=== PATIENT | female | born 1995 | race Caucasian/White ===

== ENCOUNTER 2017-01-15 20:59 | Emergency (ER) | payer MEDICAID ==
[~2017-01-15 20:59] MED LIST: AMOX500C PO
--- NOTE | 2017-01-15 21:51 | PD ---
HPI Chief Complaint Patient was sent over by her OB provider Date Seen: Jan 15, 2017 Time Seen: 21:38 Travel History International Travel<30 Days: No Contact w/Intl Traveler<30Days: No Known Affected Area: No History of Present Illness HPI Patient is a 21-year-old white female who is at 35 weeks gestation. Patient was seen at [facility] yesterday and was observed overnight. Patient was having some intermittent contractions, she was told that she was 4 cm, and that the baby was 6 lbs. 1 oz. Patient was observed overnight and did not continue to contract. She is given 2 doses of betamethasone and sent home on bedrest. Patient states that [facility] and was told to come to [place] immediately. Para: 1 : 2 History Past Medical History Medical History: Denies Significant Hx Obstetric History Obstetric History Spontaneous vaginal delivery at 38-39 weeks Past Surgical History Surgical History: No Previous Surgery Family History Family History: Negative Social History Alcohol Use: No Tobacco Use: No Substance Abuse: No Allergies-Medications (Allergen,Severity, Reaction): Coded Allergies: No Known Allergies (Unverified , 12/31/16) Home Meds Active Scripts Amoxicillin 500 Mg Sey112 Mg PO TID #15 CAP Ref 0 Prov:Hermilo Whitaker MD 12/19/16 Review of Systems Except as stated in HPI: all other systems reviewed are Neg Physical Exam Narrative GENERAL: Well-nourished, well-developed patient. SKIN: Warm and dry. HEAD: Normocephalic and atraumatic. EYES: No scleral icterus. No injection or drainage. ENT: No nasal drainage noted. Mucous membranes pink. Airway patent. NECK: Supple, trachea midline. No JVD. CARDIOVASCULAR: Regular rate and rhythm without murmurs, gallops, or rubs. RESPIRATORY: Breath sounds equal bilaterally. No accessory muscle use. BREASTS: Bilateral exam showed no masses , no retractions, no nipple discharge. ABDOMEN/GI: Abdomen soft, non-tender, bowel sounds present, no rebound, no guarding Gravid to [-] weeks size Fundal Height: [-35] GENITOURINARY: External Genitalia: intact and normal in appearance BUS glands: [Normal-] Cervix: [-Posterior] Dilatation: [-3 cm] Effacement: [-50] Station: [-4-] Presentation: [-Vertex] Membranes: Intact Uterine Contractions: Absent FHT's: Category: [1-] Baseline: 140 Reactive: Reactive Variability: Moderate Decels: Absent EXTREMITIES: No cyanosis or edema. BACK: Nontender without obvious deformity. No CVA tenderness. NEUROLOGICAL: Awake and alert. Motor and sensory grossly within normal limits. Five out of 5 muscle strength in all muscle groups. Normal speech. Data Data Vital Signs Reviewed: Yes MDM Plan 21-year-old female at 35 weeks. Patient is not presently ralph and cervix is unchanged from yesterday. Patient has been observed [place] hospital overnight and has received betamethasone. Patient has just left for the hospital and arrived here with no further complaints. Patient states that there is no way that she will stay at bedrest at home nor will she decrease her activities. Her family is here and has offered to help care for her 1-year-old the patient remains agitated and angry. She does not have any indication for toco lysis at this time she is to follow-up with her OB provider within the next week. Diagnosis Diagnosis: Primary Impression: 35 weeks gestation of Additional Impression: History of labor, current Disposition: 01 DISCHARGE HOME Condition: Stable Patient Instructions: General Instructions, Labor (ED), Having Your Baby: The Labor Process (GEN) Additional Instructions: RETURN FOR CONTRACTIONS, LOSS OF FLUID (WATER BREAKING), VAGINAL BLEEDING, OR DECREASED MOVEMENT. DRINK 8-10 LARGE GLASSES OF WATER EVERY DAY. KEEP SCHEDULED APPOINTMENT WITH YOUR PROVIDER. Departure Forms: Tests/Procedures Lindsay Saldaña MD Jan 15, 2017 21:51
== END 2017-01-15 22:00 | disposition home or self-care (01) ==
LOC: HOBED 20:59
DX: O09.213 Supervision of pregnancy with history of pre-term labor, third trimester (principal); Z3A.35 35 weeks gestation of pregnancy
CPT/HCPCS: 59025

== ENCOUNTER 2017-02-02 03:01 | Inpatient (IN) | payer MEDICAID ==
[2017-02-02] VITALS (33 sets, daily range): BP systolic 84–145; BP diastolic 55–83; PULSE 60–114; RESP 16–20; TEMP 97.8–98.4
[~2017-02-02] VITALS: Ht 157.5 cm; Wt 54.4 kg
[2017-02-02] MEDS: LACTATED RINGER'S 1000 ML INJ 1,000 ML IV SCH ×2 (03:43→09:23)
[2017-02-02] MEDS ORDERED: LACTATED RINGER'S 1000 ML INJ 1,000 ML IV PRN (03:43)
--- NOTE | 2017-02-02 03:43 | PD ---
HPI Chief Complaint Contractions Date Seen: Feb 02, 2017 Time Seen: 03:00 Travel History International Travel<30 Days: No Contact w/Intl Traveler<30Days: No Known Affected Area: No History of Present Illness HPI Ms. Martinez is a 21-year-old with [facility] at an estimated 37 3/7 weeks (SEFERINO 02/20/2017) who presents with contractions. Patient states that she has had intermittent contractions sporadically, but began having regular contractions at approximately 1 AM this morning. Contractions are every 57 minutes and 7/10 in severity. Patient denies vaginal bleeding or loss of vaginal fluid. Patient reports normal movement. Patient reports being evaluated at approximately 35 weeks for contractions; she was given 2 doses of betamethasone at that time. Patient denies other complications. She reports normal ultrasound prenatally. GBS+ urine culture on records Para: 1 : 2 History Past Medical History Narrative Medical contractions at ~35 weeks; received Betamethasone GBS+ urine culture on records Medical History: Denies Significant Hx Obstetric History Obstetric History Full term prior gestation Past Surgical History Surgical History: No Previous Surgery Family History Family History: Negative Social History Alcohol Use: No Tobacco Use: No Substance Abuse: No Allergies-Medications (Allergen,Severity, Reaction): Coded Allergies: No Known Allergies (Unverified , 01/23/17) Home Meds No Active Prescriptions or Reported Meds Review of Systems General / Constitutional: No: Fever, Chills Eyes: No: Blurred Vision Cardiovascular: No: Chest Pain or Discomfort Respiratory: No: Cough, Short of Breath Gastrointestinal: No: Nausea, Vomiting Genitourinary: No: Urgency Physical Exam T 97.8 BP 100/57 RR 18 HR 92 Narrative GENERAL: Well-nourished, well-developed patient. SKIN: Warm and dry. HEAD: Normocephalic and atraumatic. EYES: No scleral icterus. No injection or drainage. ENT: No nasal drainage noted. Mucous membranes pink. Airway patent. NECK: Supple, trachea midline. No JVD. CARDIOVASCULAR: Regular rate and rhythm without murmurs, gallops, or rubs. RESPIRATORY: Breath sounds equal bilaterally. No accessory muscle use. BREASTS: Bilateral exam showed no masses , no retractions, no nipple discharge. ABDOMEN/GI: Abdomen soft, non-tender, bowel sounds present, no rebound, no guarding Gravid EXTREMITIES: No cyanosis or edema. BACK: Nontender without obvious deformity. No CVA tenderness. NEUROLOGICAL: Awake and alert. Motor and sensory function grossly within normal limits. GENITOURINARY: External Genitalia: intact and normal in appearance Cervix: Dilatation: 4 Effacement: 90% Station: 0 Presentation: V Membranes: Intact Uterine Contractions: q5-7min FHT's: Category: 2 Baseline: 130 Reactive: Y Variability: mod Decels: occ variable Data Data Vital Signs Reviewed: Yes [facility] Medical Record Reviewed: Yes Interpretation(s) 21-year-old with [facility] at an estimated 37 3/7 weeks (SEFERINO 2016) - records pending -Contractions q5-7 min -Category 2 rhythm -Cervix 4/90%/0 -GBS urine culture positive Plan -Will admit for labor -Continue EFM monitoring -Will start IVF -Will start GBS PPX -Will obtain blood typing, UA, labs (unless obtained from ) Scripts No Active Prescriptions or Reported Meds Dank Wetzel MD R2 Feb 02, 2017 03:43
[2017-02-02] MEDS ORDERED: OXYTOCIN 30 UNITS-500ML PREMIX 500 ML IV ONE (03:45)
[2017-02-02] MEDS ORDERED: LIDOCAINE HCL 1% 50 ML VIAL INFIL PRN (03:45)
[2017-02-02] MEDS ORDERED: LIDOCAINE HCL 1% 50 ML VIAL I-DERMAL PRN (03:45)
[2017-02-02] MEDS ORDERED: CITRIC ACID-SODIUM CITRATE LIQ 30 ML UDC PO SCH (03:45)
[2017-02-02] MEDS ORDERED: MINERAL OIL 10 ML VIAL TOPICAL PRN (03:45)
[2017-02-02] MEDS ORDERED: SODIUM CHLORID 0.9% 500 ML INJ 500 ML IV PRN (03:45)
[2017-02-02] MEDS ORDERED: PENICILLIN G POTASSIUM INJ 5,000,000 UNITS in SODIUM CHLORIDE 0.9% INJ 100 ML IV ONE (03:45)
--- NOTE | 2017-02-02 03:45 | PD ---
HPI Chief Complaint Contraction pain Date Seen: Feb 02, 2017 Travel History International Travel<30 Days: No Contact w/Intl Traveler<30Days: No Known Affected Area: No History of Present Illness HPI Specimens 21-year-old white female at 37 weeks presents with contraction pain no bleeding or rupture the membranes, heart rate tracing is reactive, she is ralph every 5-6 minutes. [facility] Para: 1 : 2 History Obstetric History Obstetric History One vaginal delivery Social History Alcohol Use: No Tobacco Use: No Substance Abuse: No Allergies-Medications (Allergen,Severity, Reaction): Coded Allergies: No Known Allergies (Unverified , 01/23/17) Home Meds No Active Prescriptions or Reported Meds Review of Systems General / Constitutional: No: Fever, Weight Gain, Chills, Other Eyes: No: Diploplia, Blurred Vision, Visual changes, Pain, Photophobia HENT: No: Headaches, Vertigo, Lightheadedness Cardiovascular: No: Irregular Rhythm, Chest Pain or Discomfort, Palpitations, Tachycardia, Syncope, Varicosities, Edema, Cyanosis Respiratory: No: Cough, Short of Breath, Other Gastrointestinal: No: Nausea, Vomiting, Diarrhea Genitourinary: No: Decreased Urinary Output, Oliguria Musculoskeletal: No: Limited ROM, Weakness, Cramping, Edema, Pain Skin: No Rash, No Itching, No Dryness, No Lumps, No Change in Pigmentation, No Change in Nails, No Alopecia, No Lesions Neurologic: No: Weakness, Dizziness, Syncope, Focal Abnormalities, Coordination Problem, Headache, Slurred Speech, Seizures Psychiatric: No: Depression, Suicidal Ideations, Homicidal Ideation Endocrine: No: Heat Intolerance, Cold Intolerance, Polydipsia, Polyuria, Other Physical Exam Narrative GENERAL: Well-nourished, well-developed patient. SKIN: Warm and dry. HEAD: Normocephalic and atraumatic. EYES: No scleral icterus. No injection or drainage. ENT: No nasal drainage noted. Mucous membranes pink. Airway patent. NECK: Supple, trachea midline. No JVD. CARDIOVASCULAR: Regular rate and rhythm without murmurs, gallops, or rubs. RESPIRATORY: Breath sounds equal bilaterally. No accessory muscle use. BREASTS: Bilateral exam showed no masses , no retractions, no nipple discharge. ABDOMEN/GI: Abdomen soft, non-tender, bowel sounds present, no rebound, no guarding Gravid to [37-] weeks size Fundal Height: [-37] GENITOURINARY: External Genitalia: intact and normal in appearance BUS glands: [-] Cervix: [-] Dilatation: [4-] Effacement: [-90] Station: [0-] Presentation: [vtx-] Membranes: [intact ] Uterine Contractions: [reg q 5 min -] FHT's: Category: [1-] Baseline: [133-] Reactive: [yes-] Variability: [mod-] Decels: [occ variable-] EXTREMITIES: No cyanosis or edema. BACK: Nontender without obvious deformity. No CVA tenderness. NEUROLOGICAL: Awake and alert. Motor and sensory grossly within normal limits. Five out of 5 muscle strength in all muscle groups. Normal speech. MDM Interpretation(s) This patient is a 21-year-old white female at 37 weeks who presents and early labor. No bleeding or leakage of fluid noted contractions are every 5-6 minutes cervix is 4/90 and 0 station vertex presentation. Patient's GBS positive and will be treated as such. [facility] we are attempting to get records now Plan Plan to admit the patient for labor management, augmentation if necessary and anticipate vaginal delivery Diagnosis Diagnosis: Primary Impression: Uterine contractions during Scripts No Active Prescriptions or Reported Meds Lalo oRse II, MD Feb 02, 2017 03:45
--- NOTE | 2017-02-02 03:56 | HHI.HP ---
History & Physical H&P Patient Name: Aniceto Martinez Unit Number: [id number] Date of : 1995 Patient Status: Registered Emergency Room Attending Doctor: Lalo Rose II, MD HPI HPI Chief Complaint Contractions Date Seen: Feb 02, 2017 Time Seen: 03:00 Travel History International Travel<30 Days: No Contact w/Intl Traveler<30Days: No Known Affected Area: No History of Present Illness HPI Ms. Martinez is a 21-year-old with [facility] at an estimated 37 3/7 weeks (SEFERINO 02/20/2017) who presents with contractions. Patient states that she has had intermittent contractions sporadically, but began having regular contractions at approximately 1 AM this morning. Contractions are every 57 minutes and 7/10 in severity. Patient denies vaginal bleeding or loss of vaginal fluid. Patient reports normal movement. Patient reports being evaluated at approximately 35 weeks for contractions; she was given 2 doses of betamethasone at that time. Patient denies other complications. She reports normal ultrasound prenatally. GBS+ urine culture on records Para: 1 : 2 History (Limited) History Past Medical History Narrative Medical contractions at ~35 weeks; received Betamethasone GBS+ urine culture on records Medical History: Denies Significant Hx Obstetric History Obstetric History Full term prior gestation Past Surgical History Surgical History: No Previous Surgery Family History Family History: Negative Social History Alcohol Use: No Tobacco Use: No Substance Abuse: No Allergies-Medications Allergies-Medications (Allergen,Severity, Reaction): Coded Allergies: No Known Allergies (Unverified , 01/23/17) Home Meds No Active Prescriptions or Reported Meds ROS Review of Systems General / Constitutional: No: Fever, Chills Eyes: No: Blurred Vision Cardiovascular: No: Chest Pain or Discomfort Respiratory: No: Cough, Short of Breath Gastrointestinal: No: Nausea, Vomiting Genitourinary: No: Urgency Physical Exam Physical Exam T 97.8 BP 100/57 RR 18 HR 92 Narrative GENERAL: Well-nourished, well-developed patient. SKIN: Warm and dry. HEAD: Normocephalic and atraumatic. EYES: No scleral icterus. No injection or drainage. ENT: No nasal drainage noted. Mucous membranes pink. Airway patent. NECK: Supple, trachea midline. No JVD. CARDIOVASCULAR: Regular rate and rhythm without murmurs, gallops, or rubs. RESPIRATORY: Breath sounds equal bilaterally. No accessory muscle use. BREASTS: Bilateral exam showed no masses , no retractions, no nipple discharge. ABDOMEN/GI: Abdomen soft, non-tender, bowel sounds present, no rebound, no guarding Gravid EXTREMITIES: No cyanosis or edema. BACK: Nontender without obvious deformity. No CVA tenderness. NEUROLOGICAL: Awake and alert. Motor and sensory function grossly within normal limits. GENITOURINARY: External Genitalia: intact and normal in appearance Cervix: Dilatation: 4 Effacement: 90% Station: 0 Presentation: V Membranes: Intact Uterine Contractions: q5-7min FHT's: Category: 2 Baseline: 130 Reactive: Y Variability: mod Decels: occ variable Data Data Data Vital Signs Reviewed: Yes MDM MDM Medical Record Reviewed: Yes Interpretation(s) 21-year-old with [facility] at an estimated 37 3/7 weeks (SEFERINO 2016) - records pending -Contractions q5-7 min -Category 2 rhythm -Cervix 4/90%/0 -GBS urine culture positive Plan -Will admit for labor -Continue EFM monitoring -Will start IVF -Will start GBS PPX -Will obtain blood typing, UA, labs (unless obtained from ) Remarks Nursing staff attempted to obtain labs from [place] [id number]; these are unavailable at this time. Will draw labs Dank Wetzel MD R2 Feb 02, 2017 03:56
[2017-02-02] MEDS ORDERED: SODIUM CHLOR 0.9% 1000 ML INJ 1,000 ML IV PRN (04:03)
[2017-02-02 04:39] LABS: AUTOMATED NEUTROPHIL # 4.4 TH/MM3 (1.8-7.7); BASOPHIL % 0.3 % (0.0-2.0); EOSINOPHIL # 0.3 TH/MM3 (0-0.4); EOSINOPHIL % 3.8 % (0.0-4.0); HEMATOCRIT 32.5 % (35.0-46.0); HEMO FLAGS DIFF FINAL; LYMPH % 23.3 % (9.0-44.0); LYMPHOCYTE # 1.6 TH/MM3 (1.0-4.8); MEAN CELL VOLUME 79.8 FL (80.0-100.0); MEAN CORPUSCULAR HEMOGLOBIN 27.1 PG (27.0-34.0); MEAN CORPUSCULAR HGB CONC 33.9 % (32.0-36.0); MONO % 9.4 % (0.0-8.0); NEUT % 63.2 % (16.0-70.0); PLATELET COUNT 205 TH/MM3 (150-450); RED BLOOD COUNT 4.08 MIL/MM3 (4.00-5.30); RED CELL DISTRIBUTION WIDTH 13.7 % (11.6-17.2); WHITE BLOOD COUNT 6.9 TH/MM3 (4.0-11.0)
[2017-02-02 04:42] LABS: BACTERIA, URINE RARE /hpf; BLOOD, URINE NEG (NEG); COMMENT (UR) CULTURE INDICATED; CULTURE IF INDICATED CULTURE INDICATED; GLUCOSE,URINE NEG (NEG); KETONE, URINE TRACE mg/dL (NEG); NITRITE,URINE NEG (NEG); SQUAMOUS EPITHELIAL CELL URINE 4 /hpf (0-5); URINE COLOR YELLOW (YELLW/STRAW)
[2017-02-02 05:33] LABS: RUBELLA IGG ANTIBODY 67.1 IU/mL (10.0-500.0); RUBELLA STATUS IMMUNE (IMMUNE)
[2017-02-02] MEDS ORDERED: fentaNYL 2MCG-BUPIV 0.125% INJ 100 ML ONE (08:01)
[2017-02-02] MEDS: PENICILLIN G POTASSIUM INJ 2,500,000 UNITS in SODIUM CHLORIDE 0.9% INJ 100 ML IV SCH ×2 (09:19→09:24)
--- NOTE | 2017-02-02 10:10 | PD.OB.DELI ---
Delivery Date: Feb 02, 2017 Anesthesia: Epidural Episiotomy: None Vaginal Delivery: Normal Presentation: Occiput anterior Nuchal Cord: x1 Delayed cord clamping (45 sec): No (Nuchal cord could not be reduced) : Male One Minute : 9 Five Minute : 9 Weight: 2860 Infant Care: Suctioned, Spontaneous crying, Responded to stimulation Placenta: Spontaneous delivery, Intact Laceration: No lacerations Additional Information [id number] Rose no lacerations Dank Wetzel MD R2 Feb 02, 2017 10:10
[2017-02-02] MEDS ORDERED: oxyCODONE/ACETAMINOPHEN 5 MG/325 MG TAB PO PRN ×2 (10:15)
[2017-02-02] MEDS ORDERED: ONDANSETRON ODT 4 MG TAB PO PRN (10:15)
[2017-02-02] MEDS ORDERED: ALUMINUM/MAGNESIUM/SIMETH 30 ML CUP PO PRN (10:15)
[2017-02-02] MEDS ORDERED: SODIUM CHLORIDE 0.9% FLUSH 10 ML FLUSH IV FLUSH PRN (10:15)
[2017-02-02] MEDS ORDERED: DOCUSATE SODIUM 50 MG/SENNA 8.6 MG TAB PO PRN (10:15)
[2017-02-02] MEDS ORDERED: BENZOCAINE 20% TOPICAL SPRAY 60 ML CAN TOPICAL PRN (10:15)
[2017-02-02] MEDS ORDERED: ZOLPIDEM TARTRATE 5 MG TAB PO PRN (10:15)
[2017-02-02] MEDS ORDERED: WITCH HAZEL 50%/GLYCERIN 12.5% 40 PAD JAR TOPICAL PRN (10:15)
[2017-02-02] MEDS ORDERED: ACETAMINOPHEN 325 MG TAB PO PRN (10:15)
[2017-02-02] MEDS: IBUPROFEN 600 MG TAB PO PRN ×2 (11:38→21:06)
[2017-02-02] MEDS ORDERED: DIPHTH/TETANUS/ACEL PERTUSSIS (BOOSTER) 0.5 ML VIAL/PFS IM ONE (16:00)
[2017-02-02] MEDS ORDERED: MEASLES, MUMPS, RUBELLA VACCINE 0.5 ML VIAL SQ ONE (16:00)
[2017-02-02] MEDS ORDERED: SODIUM CHLORIDE 0.9% FLUSH 10 ML FLUSH IV FLUSH SCH (21:00)
--- NOTE | 2017-02-03 10:47 | HHI.OB ---
Subjective Post Day: 1 Remarks Mrs. Martinez is a 21 yo F who is PPD 1 from . Patient reports doing well at this time. Patient reports that abdominal pain/ cramping is resolved. Patient reports light vaginal bleeding. Patient ambulating well. No dysuria. Patient passing gas. Patient denies shortness of breath, chest pain, or calf swelling. Patient requests discharge today. ( Dank Wetzel MD R2) Objective Vitals/I&O Vital Signs Date Time Temp Pulse Resp B/P Pulse Ox O2 Delivery O2 Flow Rate FiO2 02/02/17 12:30 97.8 75 16 94/55 02/02/17 11:30 79 109/71 02/02/17 11:19 18 02/02/17 11:15 69 18 110/80 02/02/17 11:00 65 108/55 02/02/17 10:54 18 02/02/17 10:45 67 98/62 Objective Remarks GENERAL: Well-nourished, well-developed patient. CARDIOVASCULAR: Regular rate and rhythm without murmurs. Normal perfusion RESPIRATORY: CTAB, normal rate ABDOMEN/GI: Abdomen soft, non-tender. Fundus: Firm, non-tender at umbilicus. GENITOURINARY: Light to moderate bleeding. EXTREMITIES: No cyanosis or edema, non-tender, without signs of DVT. Medications and IVs Current Medications Medications (Trade) Dose Ordered Sig/Ricky Route Start Time Stop Time Status Last Admin (NS Flush) 2 ml BID IV FLUSH 02/02/17 21:00 02/02/17 21:06 (NS Flush) 2 ml UNSCH PRN IV FLUSH 02/02/17 10:15 (Tylenol) 650 mg Q4H PRN PO 02/02/17 10:15 (Motrin) 600 mg Q6H PRN PO 02/02/17 10:15 02/02/17 21:06 (Percocet 5-325 Mg) 1 tab Q4H PRN PO 02/02/17 10:15 (Percocet 5-325 Mg) 2 tab Q4H PRN PO 02/02/17 10:15 (Americaine 20% Top Spr) 1 spray Q4H PRN TOPICAL 02/02/17 10:15 02/02/17 12:48 (Tucks Pads) 1 applic QID PRN TOPICAL 02/02/17 10:15 02/02/17 12:48 (Sheila-Colace) 2 tab Q12H PRN PO 02/02/17 10:15 02/02/17 21:07 (Ambien) 5 mg HS PRN PO 02/02/17 10:15 (Mag-Al Plus Susp Liq) 15 ml Q8H PRN PO 02/02/17 10:15 (Zofran Odt) 4 mg Q6H PRN PO 02/02/17 10:15 (Dank Wetzel MD R2) Assessment/Plan Problem List: (1) care and examination Assessment and Plan 21 yo F who is PPD 1 from Pain control with Motrin when necessary Ambulating well -Passing gas; continue Sheila-Colace Follow-up in 6 weeks with [facility] -discuss control at follow-up Pelvic rest 6 weeks (Dank Wetzel MD R2) Attending Attestation Agree with resident A/P. D/c home. f/u in 6 weeks. (Shirley Mccann MD) Dank Wetzel MD R2 Feb 03, 2017 10:47 Shirley Mccann MD Feb 03, 2017 12:15
[2017-02-03] MEDS ORDERED: SENN1TAB PO (10:52)
[2017-02-03] MEDS ORDERED: IBUP-232 PO (10:52)
--- NOTE | 2017-02-03 10:55 | HHI.DCPOC ---
Discharge Care Plan Diagnosis: (1) care and examination Your Health Problems Are: Vaginal delivery Report Symptoms to Your Doctor -Temperate above 100.5 degrees -excessive or foul smelling drainage -Unusual pain or calf pain -Increased vaginal bleeding -Painful or difficulty urinating -Feelings of extreme sadness or anxiety after 2 weeks Goals to Promote Your Health * To prevent worsening of your condition and complications * To maintain your health at the optimal level Directions to Meet Your Goals Take your medications as prescribed Follow your dietary instruction Follow activity as directed Ensure plenty of rest for recovery Drink fluids for hydration Keep your appointments as scheduled Take your immunizations and boosters as scheduled If your symptoms worsen call your PCP, if no PCP go to Urgent Care Center or Emergency Room Smoking is Dangerous to Your Health. Avoid second hand smoke Call the 24-hour crisis hotline for domestic abuse at Shirley Mccann MD Feb 03, 2017 10:55
[2017-02-03] MEDS ORDERED: DIPHTH/TETANUS/ACEL PERTUSSIS (BOOSTER) 0.5 ML VIAL/PFS IM ONE (12:30)
[2017-02-03 15:54] LABS: RAPID PLASMA REAGIN SCREEN NON-REACTIVE (NON-REACTVE)
== END 2017-02-03 18:28 | disposition home or self-care (01) | DRG 775 ==
LOC: HOBED 03:01 → H2EA 03:52 → H1EA 12:00
PROVIDERS: ADMIT Obstetrics & Gynecology Maternal & Fetal Medicine; ATTEND Obstetrics & Gynecology Maternal & Fetal Medicine
PROC: 10E0XZZ Delivery of Products of Conception, External Approach (ICD-10-PCS; principal; 2017-02-02)
PROC: 3E0S3CZ (ICD-10-PCS; 2017-02-02)
PROC: 00HU33Z Insertion of Infusion Device into Spinal Canal, Percutaneous Approach (ICD-10-PCS; 2017-02-02)
DX: O99.824 Streptococcus B carrier state complicating childbirth (principal); O69.81X0 Labor and delivery complicated by cord around neck, without compression, not applicable or unspecified; Z3A.37 37 weeks gestation of pregnancy; Z37.0 Single live birth
CPT/HCPCS: 59025; 80074; 81001; 85025; 86592; 86762; 86850; 86900; 86901; 87086; 90715; 99285; J2540; J2590; J7120

== ENCOUNTER 2018-06-21 01:39 | Inpatient (IN) ==
[2018-06-21] MEDS ORDERED: Oxytocin 30 Units/500ml Premix 30 UNITS/500 ML BAG IV.SIG ONE (03:09)
[2018-06-21] MEDS ORDERED: Naloxone Inj 0.4 MG/ML Vial IV.PUSH PRN ×2 (03:09→12:35)
[2018-06-21] MEDS ORDERED: fentaNYL Citrate Inj 100 MCG/2 ML Ampul IV.PUSH PRN ×2 (03:09)
[2018-06-21] MEDS ORDERED: Sodium Chlor 0.9% Inj 500 ML IV.SIG PRN (03:09)
[2018-06-21] MEDS ORDERED: Sod Chloride 0.9% Inj 1,000 ML IV.CONT PRN (03:09)
[2018-06-21] MEDS ORDERED: Citric Acid/Sodium Citrate Liq 30 ML UDC PO SCH (03:15)
--- NOTE | 2018-06-21 03:16 | P.HPOB ---
History of Present Illness Primary Care Physician: UNKNOWN Chief Complaint: contractions History of Present Illness: Contractions q 10 min since 11PM no VB no LOF Decreased movement Weeks Gestation:: 39 Para: 2 : 3 PMFSH - History History Provided By: Patient - Medical History Medical History: Medical History (Last Updated 06/21/18 @ 03:12 by Yesi Mueller MD) Patient denies medical problems - Surgical History Surgical History: Surgical History (Last Updated 06/21/18 @ 03:12 by Yesi Mueller MD) No history of previous surgery - Tobacco History Second Hand Smoke Exposure: No Tobacco Use In Past 30 Days: No Smoking Status: Never smoker - Alcohol History How Often Do You Have a Drink Containing Alcohol: Never - Substance Use History Substance History: No History of Abuse - Immunization History Tetanus Immunization: Unable to Assess Hx Influenza Vaccine This Season: No Medications and Allergies Active Medications: Active Medications Fentanyl Citrate (Fentanyl Inj) 50 mcg IV.PUSH Q1H PRN PRN Reason: Pain Scale 3 - 5 Allergies Allergy/AdvReac Type Severity Reaction Status Date / Time No Known Allergies Allergy Uncoded 02/02/17 07:27 Exam Vital signs: Vital Signs 06/21/18 01:54 06/21/18 01:55 06/21/18 02:25 Temperature 98.0 F Pulse Rate 106 H Respiratory Rate 16 16 Blood Pressure 102/66 06/21/18 03:09 Temperature Pulse Rate Respiratory Rate 16 Blood Pressure Narrative: GENERAL: Well-nourished, well-developed patient. SKIN: Warm and dry. HEAD: Normocephalic and atraumatic. EYES: No scleral icterus. No injection or drainage. ENT: No nasal drainage noted. Mucous membranes pink. Airway patent. NECK: Supple, trachea midline. No JVD. CARDIOVASCULAR: Regular rate and rhythm without murmurs, gallops, or rubs. RESPIRATORY: Breath sounds equal bilaterally. No accessory muscle use. BREASTS: Bilateral exam showed no masses , no retractions, no nipple discharge. ABDOMEN/GI: Abdomen soft, non-tender, bowel sounds present, no rebound, no guarding Gravid to - weeks size Fundal Height: - GENITOURINARY: External Genitalia: intact and normal in appearance BUS glands: - Cervix: - Dilatation: 4 Effacement: 70 Station: -2 Presentation: VTX Membranes: intact Uterine Contractions: + FHT's: Category: 1 Baseline: 120 Reactive: Y Variability: Mod Decels: Neg EXTREMITIES: No cyanosis or edema. BACK: Nontender without obvious deformity. No CVA tenderness. NEUROLOGICAL: Awake and alert. Motor and sensory grossly within normal limits. Five out of 5 muscle strength in all muscle groups. Normal speech. Caprini VTE Risk Assessment Caprini VTE Risk Assessment: No/Low Risk (score <= 1) Caprini Risk Assessment Model: Point Value = 1 Point Value = 2 Point Value = 3 Point Value = 5 Age 41-60 Minor surgery BMI > 25 kg/m2 Swollen legs Varicose veins or History of unexplained or recurrent spontaneous Oral contraceptives or hormone replacement Sepsis (< 1 month) Serious lung disease, including pneumonia (< 1 month) Abnormal pulmonary function Acute myocardial infarction Congestive heart failure (< 1 month) History of inflammatory bowel disease Medical patient at bed rest Age 61-74 Arthroscopic surgery Major open surgery (> 45 min) Laparoscopic surgery (> 45 min) Malignancy Confined to bed (> 72 hours) Immobilizing plaster cast Central venous access Age >= 75 History of VTE Family history of VTE Factor V Leiden Prothrombin [id number] Lupus anticoagulant Anticardiolipin antibodies Elevated serum homocysteine Heparin-induced thrombocytopenia Other congenital or acquired thrombophilia Stroke (< 1 month) Elective arthroplasty Hip, pelvis, or leg fracture Acute spinal cord injury (< 1 month) Prophylaxis Regimen: Total Risk Factor Score Risk Level Prophylaxis Regimen 0-1 Low Early ambulation 2 Moderate Order ONE of the following: *Sequential Compression Device (SCD) *Heparin 5000 units SQ BID 3-4 Higher Order ONE of the following medications: *Heparin 5000 units SQ TID *Enoxaparin/Lovenox 40 mg SQ daily (WT < 150 kg, CrCl > 30 mL/min) *Enoxaparin/Lovenox 30 mg SQ daily (WT < 150 kg, CrCl > 10-29 mL/min) *Enoxaparin/Lovenox 30 mg SQ BID (WT < 150 kg, CrCl > 30 mL/min) AND/OR *Sequential Compression Device (SCD) 5 or more Highest Order ONE of the following medications: *Heparin 5000 units SQ TID (Preferred with Epidurals) *Enoxaparin/Lovenox 40 mg SQ daily (WT < 150 kg, CrCl > 30 mL/min) *Enoxaparin/Lovenox 30 mg SQ daily (WT < 150 kg, CrCl > 10-29 mL/min) *Enoxaparin/Lovenox 30 mg SQ BID (WT < 150 kg, CrCl > 30 mL/min) AND *Sequential Compression Device (SCD) Assessment and Plan - Plan 3/2 with IUP@ 39 4/7 weeks Decreased movement - Oligohydramnios noted on ultrasound. Given quinn patient's favorable cervix plan to admit for delivery
[2018-06-21 03:48] LABS: Baso % (Auto) 0.5 % (0.0-2.0); Eos # (Auto) 0.1 th/mm3 (0.0-0.4); Eos % (Auto) 1.8 % (0.0-4.0); Hematocrit 35.3 % (35.0-46.0); Lymph # (Auto) 2.2 th/mm3 (1.0-4.8); Lymph % (Auto) 27.1 % (9.0-44.0); Mean Corpuscular HGB Conc 34.1 % (32.0-36.0); Mean Corpuscular Hemoglobin 29.1 pg (27.0-34.0); Mean Corpuscular Volume 85.3 fL (80.0-100.0); Mean Platelet Volume 8.3 fL (7.0-11.0); Mono # (Auto) 0.8 th/mm3 (0.0-0.9); Mono % (Auto) 9.8 % (0.0-8.0); Neut # (Auto) 4.9 th/mm3 (1.8-7.7); Neut % (Auto) 60.8 % (16.0-70.0); Platelet Count 185 th/mm3 (150-450); Red Blood Count 4.14 mil/mm3 (4.00-5.30); Red Cell Distribution Width 13.5 % (11.6-17.2); White Blood Count 8.1 th/mm3 (4.0-11.0)
[2018-06-21 05:30] LABS: Bacteria,Urine Moderate /hpf; Bilirubin,Urine Negative (Negative); Clarity,Urine Cloudy (Clear); Color,Urine Amber (Yellw/Straw); Glucose,Urine (UA) Negative (Negative); Leukocyte Esterase,Urine Small (Negative); Mucus,Urine Moderate /lpf (Occasional); Nitrite,Urine Negative (Negative); Specific Gravity,Urine 1.018 (1.002-1.035); Squamous Epithelial Cell,Urine 2 /hpf (0-5)
[2018-06-21 05:32] LABS: Amphetamine Urine With Conf Neg (Neg); Benzodiazepine Urine With Conf Neg (Neg)
--- NOTE | 2018-06-21 07:31 | P.OBANTE ---
Subjective Objective Vital Signs and I&O: Vital Signs 06/21/18 01:54 06/21/18 01:55 06/21/18 02:25 Temperature 98.0 F Pulse Rate 106 H Respiratory Rate 16 16 Blood Pressure 102/66 06/21/18 03:09 06/21/18 04:18 06/21/18 06:40 Temperature 98.7 F 98.6 F Pulse Rate 70 68 Respiratory Rate 16 18 18 Blood Pressure 106/63 95/45 L Intake & Output 06/20/18 06/21/18 06/21/18 18:59 06:59 18:59 Weight 118 kg Lab and Micro Results: Laboratory Results - last 24 hr 06/21/18 06/21/18 06/21/18 02:06 02:06 03:35 WBC 8.1 RBC 4.14 Hgb 12.0 Hct 35.3 MCV 85.3 MCH 29.1 MCHC 34.1 RDW 13.5 Plt Count 185 MPV 8.3 Neut % (Auto) 60.8 Lymph % (Auto) 27.1 [place] % (Auto) 9.8 H Eos % (Auto) 1.8 Baso % (Auto) 0.5 Neut # (Auto) 4.9 Lymph # (Auto) 2.2 [place] # (Auto) 0.8 Eos # (Auto) 0.1 Baso # (Auto) 0.0 WBC Differential . Differential Comment Auto diff final Urine Color Iva Urine Clarity Cloudy H Urine pH 6.0 Ur Specific [place] 1.018 Urine Protein 30 H Urine Glucose (UA) Negative Urine Ketones 20 Urine Occult Blood Negative Urine Nitrate Negative Urine Bilirubin Negative Urine Urobilinogen Less than 2 Ur Leukocyte Esterase Small H Urine RBC 2 Urine WBC 35 H Ur Squamous Epith Cells 2 Urine Bacteria Moderate H Urine Mucus Moderate H Micro UA Comment Culture indicated Urine Culture Comments Culture indicated Urine Opiates Screen Neg Ur Barbiturates Screen Neg Ur Amphetamine Screen Neg U Benzodiazepines Scrn Neg Urine Cocaine Screen Neg U Cannabinoids Screen Pos H Blood Type Blood Type Recheck 06/21/18 03:35 WBC RBC Hgb Hct MCV MCH MCHC RDW Plt Count MPV Neut % (Auto) Lymph % (Auto) [place] % (Auto) Eos % (Auto) Baso % (Auto) Neut # (Auto) Lymph # (Auto) [place] # (Auto) Eos # (Auto) Baso # (Auto) WBC Differential Differential Comment Urine Color Urine Clarity Urine pH Ur Specific [place] Urine Protein Urine Glucose (UA) Urine Ketones Urine Occult Blood Urine Nitrate Urine Bilirubin Urine Urobilinogen Ur Leukocyte Esterase Urine RBC Urine WBC Ur Squamous Epith Cells Urine Bacteria Urine Mucus Micro UA Comment Urine Culture Comments Urine Opiates Screen Ur Barbiturates Screen Ur Amphetamine Screen U Benzodiazepines Scrn Urine Cocaine Screen U Cannabinoids Screen Blood Type O Positive Blood Type Recheck Required Physical Exam: GENERAL: Well-nourished, well-developed patient. CARDIOVASCULAR: Regular rate and rhythm without murmurs, gallops, or rubs. RESPIRATORY: Breath sounds equal bilaterally. No accessory muscle use. ABDOMEN/GI: Abdomen soft, non-tender. Fundus: [-] GENITOURINARY: External Genitalia: intact and normal in appearance Cervix: [posterior] Dilatation: [4] Effacement: [60] Station: [-2] Presentation: [vx] Membranes: [AROM, clear fluid scarce Uterine Contractions: [q5-6] FHT's: Category: [1] Baseline: [135] Reactive: [r] Variability: [moderate] Decels: [none] EXTREMITIES: No cyanosis or edema, non-tender, without signs of DVT. Assessment and Plan - Diagnosis (1) Labor abnormality, antepartum Code(s): O62.9 - Abnormality of forces of labor, unspecified Status: Acute - Plan 3/2 with IUP@ 39 4/7 weeks Decreased movement - Oligohydramnios noted on ultrasound. Given [facility] patient's favorable cervix plan to admit for delivery
[2018-06-21] MEDS ORDERED: fentaNYL 2MCG-Bupiv 0.125% Epi 150 ML EPIDURAL ONE (08:26)
[2018-06-21] MEDS ORDERED: fentaNYL Citrate Inj 100 MCG/2 ML Ampul EPIDURAL ONE (10:44)
[2018-06-21] MEDS ORDERED: fentaNYL 2MCG-Bupiv 0.125% Epi 150 ML EPIDURAL SCH (10:45)
[2018-06-21] MEDS ORDERED: Oxytocin 30 Units/500ml Premix 30 UNITS/500 ML BAG ONE (11:52)
[2018-06-21] MEDS ORDERED: Witch Hazel 50%/Glyderin 12.5% 40 Pad Jar RECTAL PRN (12:35)
[2018-06-21] MEDS ORDERED: Benzocaine 20% Top Spray 60 ML Can TOPICAL PRN (12:35)
[2018-06-21] MEDS ORDERED: Bisacodyl 10 MG Supp RECTAL PRN (12:35)
[2018-06-21] MEDS ORDERED: Acetaminophen 325 MG Tablet PO PRN (12:35)
--- NOTE | 2018-06-21 12:39 | P.OBDELI ---
Weeks Gestation: 39 Patient Started Active Labor: Yes Medical Induction of Labor: No Artificial Rupture of Membrane: Yes Artificial ROM Date: 06/21/18 Anesthesia: Epidural Episiotomy: none Vaginal Delivery: Normal Presentation: Occiput anterior Nuchal Cord: x2 Delayed Cord Clamping (45 sec): Yes Placenta: Spontaneous delivery Laceration: None Estimated blood loss (mL): 200 : Male
[2018-06-21] MEDS ORDERED: Oxytocin 30 Units/500ml Premix 30 UNITS/500 ML BAG IV.CONT SCH (12:45)
[2018-06-21] MEDS ORDERED: Methylergonovine Inj 0.2 MG/ML Ampul IM ONE (15:30)
[2018-06-21] MEDS ORDERED: Measles/Mumps/Rubella Vaccine Inj 0.5 ML Vial SQ ONE (16:00)
[2018-06-21] MEDS ORDERED: Diphtheria/Tetanus/Pertussis Vaccine Inj 0.5 ML Syringe IM ONE (16:00)
[2018-06-21] MEDS ORDERED: Zolpidem Tartrate 5 MG Tablet PO PRN (21:00)
[2018-06-22] MEDS: Senna/Docusate Sodium 8.6/50 MG Tablet PO SCH ×2 (07:08→09:30)
[2018-06-22] MEDS: Ibuprofen 400 MG Tablet PO PRN ×2 (08:46→18:34)
--- NOTE | 2018-06-22 08:57 | P.PNOB ---
Subjective Interval history: day #1 AFVSS overnight. Decreased lochia. Denies dysuria. No breast tenderness. Appetite good. No nausea or vomiting. Ambulating well. Denies calf pain or shortness of breath. Otherwise, she is doing well this morning and has no other complaints. Objective Vital Signs/I&O: Vital Signs 06/21/18 09:20 06/21/18 09:35 06/21/18 10:25 Temperature Pulse Rate 71 70 66 Respiratory Rate 16 Blood Pressure 98/56 L 85/60 L 99/61 L 06/21/18 10:28 06/21/18 10:30 06/21/18 11:00 Temperature 98.7 F Pulse Rate 96 H 68 68 Respiratory Rate 16 Blood Pressure 111/66 98/46 L 97/59 L 06/21/18 11:30 06/21/18 12:01 06/21/18 12:31 Temperature Pulse Rate 64 58 L 79 Respiratory Rate Blood Pressure 108/71 133/66 124/68 06/21/18 12:41 06/21/18 12:58 06/21/18 12:59 Temperature Pulse Rate 64 Respiratory Rate 16 16 Blood Pressure 107/64 06/21/18 13:15 06/21/18 13:30 06/21/18 13:41 Temperature Pulse Rate 62 58 L Respiratory Rate 16 16 Blood Pressure 107/58 L 107/62 06/21/18 13:45 06/21/18 14:00 06/21/18 14:28 Temperature 97.8 F Pulse Rate 64 Respiratory Rate 6 L Blood Pressure 91/72 L 06/21/18 15:00 06/21/18 20:36 Temperature 98.4 F 98.2 F Pulse Rate 68 17 L Respiratory Rate 18 6 L Blood Pressure 100/56 L 102/65 Intake & Output 06/21/18 06/22/18 06/22/18 18:59 06:59 18:59 Intake Total 1999 Balance 1999 Intake: IV 1999 LR 1000 mL Inj 1,000 ML @ 125 1999 mls/hr IV.CONT .Q8H [facility] Rx#: [id number] Result Diagrams: 06/21/18 03:35 Objective Remarks: GENERAL: Well-nourished, well-developed patient. CARDIOVASCULAR: Regular rate and rhythm without murmurs, gallops, or rubs. RESPIRATORY: Breath sounds equal bilaterally. No accessory muscle use. ABDOMEN/GI: Abdomen soft, non-tender. Fundus: Firm, non-tender at umbilicus. GENITOURINARY: Light to moderate bleeding. EXTREMITIES: No cyanosis or edema, non-tender, without signs of DVT. Medications and IVs: Active Medications Acetaminophen (Tylenol) 650 mg PO Q4H PRN PRN Reason: PAIN SCALE 1 TO 2 Al Hydroxide/Mg Hydroxide (Milk Of Magnesia Liq) 30 ml PO Q12H PRN PRN Reason: Mild Constipation Benzocaine (Americaine 20% Top [place]) 1 spray TOPICAL Q4H PRN PRN Reason: For Perineum Discomfort Bisacodyl (Dulcolax Supp) 10 mg RECTAL DAILY PRN PRN Reason: SEVERE CONSITIPATION Citric Acid/Sodium Citrate (Sodium Citrate/Citric Acid Liq) 30 ml PO [employer] [facility] Stop: 06/25/18 03:14 Ephedrine Sulfate (Ephedrine/Ns Syringe) 10 mg IV.PUSH UNSCH PRN PRN Reason: SEE LABEL COMMENTS Stop: 06/22/18 10:44 Fentanyl Citrate (Fentanyl Inj) 50 mcg IV.PUSH Q1H PRN PRN Reason: Pain Scale 3 - 5 Fentanyl Citrate (Fentanyl Inj) 100 mcg IV.PUSH Q1H PRN PRN Reason: PAIN SCALE 6 TO 10 Last Admin: 06/21/18 08:28 Dose: 100 mcg Lactated Ringer's (Lr 1000 Ml Inj) 1,000 mls @ 3,000 mls/hr IV.SIG UNSCH PRN PRN Reason: compromise or epidural Lactated Ringer's (Lr 1000 Ml Inj) 1,000 mls @ 125 mls/hr IV.CONT .Q8H [facility] Last Admin: 06/22/18 07:08 Dose: Not Given Sodium Chloride (Ns Inj) 500 mls @ 1,000 mls/hr IV.SIG UNSCH PRN PRN Reason: SEE LABEL COMMENTS Sodium Chloride (Ns Inj) 1,000 mls @ 100 mls/hr IV.CONT .Q10H PRN PRN Reason: SEE LABEL COMMENTS Fentanyl/Bupivacaine/Sodium Chlor (Fentanyl 2 Mcg-Bupiv 0.125% Epi) 150 mls @ 12 mls/hr EPIDURAL UNSCH [facility] Stop: 06/22/18 10:44 Ibuprofen (Motrin) 800 mg PO Q8H PRN PRN Reason: For cramping Last Admin: 06/22/18 08:46 Dose: 800 mg Lactulose (Lactulose Liq) 30 ml PO DAILY PRN PRN Reason: SEVERE CONSITIPATION Lidocaine HCl (Xylocaine 1% Inj) 0.1 ml I-DERMAL PRN PRN PRN Reason: For IV start Stop: 06/24/18 03:08 Lidocaine HCl (Xylocaine 1% Inj) 10 ml INFILTRATN PRN PRN PRN Reason: For episiotomy repair Stop: 06/23/18 03:08 Mineral Oil (Muri-Lube Oil) 10 ml TOPICAL PRN PRN PRN Reason: PRN perineal massage Miscellaneous Information (Misc Information) 1 each OTHER UNSCH PRN PRN Reason: SEE LABEL COMMENTS Stop: 06/22/18 10:44 Miscellaneous Information (Misc Information) 1 each OTHER UNSCH PRN PRN Reason: SEE LABEL COMMENTS Stop: 06/22/18 10:44 Naloxone HCl (Narcan Inj) 0.1 mg IV.PUSH Q2M PRN PRN Reason: for opiate reversal Naloxone HCl (Narcan Inj) 0.1 mg IV.PUSH Q2M PRN PRN Reason: for opiate reversal Ondansetron HCl (Zofran Odt) 4 mg PO Q6H PRN PRN Reason: NAUSEA OR VOMITING Senna/Docusate Sodium (Sheila-Colace) 1 tab PO BID [facility] Last Admin: 06/22/18 07:08 Dose: Not Given Sennosides (Senokot) 17.2 mg PO Q12H PRN PRN Reason: Moderate Constipation Sodium Chloride (Ns Flush) 2 ml IV.FLUSH PRN PRN PRN Reason: FLUSH AFTER USING IV ACCESS Sodium Chloride (Ns Flush) 2 ml IV.FLUSH BID [facility] Last Admin: 06/22/18 07:08 Dose: Not Given Witch Gabriela/Glycerin (Tucks Pads) 1 applicatio RECTAL QID PRN PRN Reason: HEMORRHOIDS Zolpidem Tartrate (Ambien) 5 mg PO HS PRN PRN Reason: SLEEP Assessment and Plan - Plan 22y/o female who is PPD#1 s/p . -Continue routine care. -Motrin PRN pain. -Encouraged OOB. Advised pelvic rest for 6 wks. -Re: ctrl, she would like Depo-Provera. -D/c in 1-2 more days. yusef Rose
[2018-06-22] MEDS ORDERED: medroxyPROGESTERone Acetate Inj 150 MG/ML Syringe IM ONE ×2 (09:29→18:00)
[2018-06-23] MEDS: Ibuprofen 400 MG Tablet PO PRN (04:34)
[2018-06-23] MEDS: Senna/Docusate Sodium 8.6/50 MG Tablet PO SCH ×2 (06:21→08:23)
--- NOTE | 2018-06-23 08:57 | P.PNOB ---
Subjective Interval history: day #2 AFVSS overnight. Decreased lochia. Denies dysuria. No breast tenderness. Appetite good. No nausea or vomiting. Ambulating well. Denies calf pain or shortness of breath. Otherwise, she is doing well this morning and has no other complaints. Objective Vital Signs/I&O: Vital Signs 06/22/18 20:00 Temperature 98.4 F Pulse Rate 90 Respiratory Rate 18 Blood Pressure 109/70 Result Diagrams: 06/21/18 03:35 Objective Remarks: GENERAL: Well-nourished, well-developed patient. CARDIOVASCULAR: Regular rate and rhythm without murmurs, gallops, or rubs. RESPIRATORY: Breath sounds equal bilaterally. No accessory muscle use. ABDOMEN/GI: Abdomen soft, non-tender. Fundus: Firm, non-tender at umbilicus. GENITOURINARY: Light to moderate bleeding. EXTREMITIES: No cyanosis or edema, non-tender, without signs of DVT. Medications and IVs: Active Medications Acetaminophen (Tylenol) 650 mg PO Q4H PRN PRN Reason: PAIN SCALE 1 TO 2 Al Hydroxide/Mg Hydroxide (Milk Of Magnesia Liq) 30 ml PO Q12H PRN PRN Reason: Mild Constipation Benzocaine (Americaine 20% Top [place]) 1 spray TOPICAL Q4H PRN PRN Reason: For Perineum Discomfort Bisacodyl (Dulcolax Supp) 10 mg RECTAL DAILY PRN PRN Reason: SEVERE CONSITIPATION Citric Acid/Sodium Citrate (Sodium Citrate/Citric Acid Liq) 30 ml PO [facility] Stop: 06/25/18 03:14 Fentanyl Citrate (Fentanyl Inj) 50 mcg IV.PUSH Q1H PRN PRN Reason: Pain Scale 3 - 5 Fentanyl Citrate (Fentanyl Inj) 100 mcg IV.PUSH Q1H PRN PRN Reason: PAIN SCALE 6 TO 10 Last Admin: 06/21/18 08:28 Dose: 100 mcg Lactated Ringer's (Lr 1000 Ml Inj) 1,000 mls @ 3,000 mls/hr IV.SIG UNSCH PRN PRN Reason: compromise or epidural Lactated Ringer's (Lr 1000 Ml Inj) 1,000 mls @ 125 mls/hr IV.CONT .Q8H [facility] Last Admin: 06/23/18 06:20 Dose: Not Given Sodium Chloride (Ns Inj) 500 mls @ 1,000 mls/hr IV.SIG UNSCH PRN PRN Reason: SEE LABEL COMMENTS Sodium Chloride (Ns Inj) 1,000 mls @ 100 mls/hr IV.CONT .Q10H PRN PRN Reason: SEE LABEL COMMENTS Ibuprofen (Motrin) 800 mg PO Q8H PRN PRN Reason: For cramping Last Admin: 06/23/18 04:34 Dose: 800 mg Lactulose (Lactulose Liq) 30 ml PO DAILY PRN PRN Reason: SEVERE CONSITIPATION Lidocaine HCl (Xylocaine 1% Inj) 0.1 ml I-DERMAL PRN PRN PRN Reason: For IV start Stop: 06/24/18 03:08 Mineral Oil (Muri-Lube Oil) 10 ml TOPICAL PRN PRN PRN Reason: PRN perineal massage Naloxone HCl (Narcan Inj) 0.1 mg IV.PUSH Q2M PRN PRN Reason: for opiate reversal Naloxone HCl (Narcan Inj) 0.1 mg IV.PUSH Q2M PRN PRN Reason: for opiate reversal Ondansetron HCl (Zofran Odt) 4 mg PO Q6H PRN PRN Reason: NAUSEA OR VOMITING Senna/Docusate Sodium (Sheila-Colace) 1 tab PO BID [facility] Last Admin: 06/23/18 08:23 Dose: Not Given Sennosides (Senokot) 17.2 mg PO Q12H PRN PRN Reason: Moderate Constipation Sodium Chloride (Ns Flush) 2 ml IV.FLUSH PRN PRN PRN Reason: FLUSH AFTER USING IV ACCESS Sodium Chloride (Ns Flush) 2 ml IV.FLUSH BID [facility] Last Admin: 06/23/18 08:23 Dose: Not Given Witch Gabriela/Glycerin (Tucks Pads) 1 applicatio RECTAL QID PRN PRN Reason: HEMORRHOIDS Zolpidem Tartrate (Ambien) 5 mg PO HS PRN PRN Reason: SLEEP Assessment and Plan - Plan 22y/o female who is PPD#2 s/p . -Continue routine care. -Motrin PRN pain. -Encouraged OOB. Advised pelvic rest for 6 wks. -Re: ctrl, she would like Depo-Provera. -D/c Likely today cassiew Dr. Rose
== END 2018-06-23 13:30 | disposition home or self-care (01) ==
LOC: HOBED 01:39 → H2E 03:29 → H1EA 14:23
PROVIDERS: ADMIT Obstetrics & Gynecology; ATTEND Obstetrics & Gynecology